=== PATIENT | female | born 1990 | race Caucasian/White ===

== ENCOUNTER 2021-03-20 15:28 | Emergency (ER) | payer OTHER, SELFPAY ==
[2021-03-20 15:34] VITALS: BP 127/83; PULSE 85; RESP 18; TEMP 36.3; O2SAT 100
--- NOTE | 2021-03-20 16:01 | ED.SKABFB ---
HPI - Skin/Abscess/Foreign Bdy General Chief complaint: Skin/Abscess/Foreign Body Stated complaint: Sore between Toe on right Foot also swollen Time Seen by Provider: 03/20/21 16:01 Source: patient and RN notes reviewed Mode of arrival: ambulatory Limitations: no limitations History of Present Illness HPI narrative: 30 year old female presents to [facility] care with complaints of blister type of lesion to the area between her 4th and 5th toe of her right foot for one week duration. Patient states that she has been applying Aquaphor lotion to wound area. Patient also has small abrasion to inner aspect of 5th toe near red inflamed tissue. Patient denies any drainage from area, denies any known trauma to area, states burning sensation to tissue. Patient denies any fevers, chills or sweats. rates her pain 3/10. MD complaint: lesion Onset (ago): week(s) (1) Tetanus up to date: yes Location: R foot Severity scale (1-10): 3 Quality: burning Treatments prior to arrival: other (aquaphor lotion) Related Data Home Medications Medication Instructions Recorded Confirmed multivitamin 1 cap PO DAILY 05/26/20 Allergies Allergy/AdvReac Type Severity Reaction Status Date / Time No Known Allergies Allergy Verified 03/20/21 15:48 Review of Systems Review of Systems: Narrative: CONSTITUTIONAL: Denies fever, chills, or sweats. EYES: Denies visual changes, redness, or discharge. ENT: Denies rhinorrhea, congestion, sore throat, or otalgia. CARDIOVASCULAR: Denies chest pain, palpitations, or edema. RESPIRATORY: Denies cough or dyspnea. GASTROINTESTINAL: Denies abdominal pain, nausea, vomiting, or diarrhea. GENITOURINARY: Denies dysuria or hematuria. SKIN: Denies rash or itching.positive for redness with blister type of lesion between 4th and 5th toe right foot burning sensation MUSCULOSKELETAL: Denies back pain, joint pain, or myalgia. NEUROLOGIC: Denies headache, numbness, or weakness. PSYCHIATRIC: Denies anxiety or depression. All systems reviewed & are unremarkable except as noted in HPI and below PMFSH Past Medical History Medical History (Updated 03/21/21 @ 00:00 by Background Daemon) HPV (human papilloma virus) infection Migraines Vaginal delivery 11/27/16 Pre-term Female 4lbs 18oz Surgical History Surgical History (Updated 03/24/21 @ 14:10 by Lisa Barrera NP) No history of previous surgery Family History Family History Mother Breast cancer Grandparent Cerebrovascular accident Social History Social History (Updated 03/24/21 @ 14:10 by Lisa Barrera NP) Smoking status: Former smoker Additional smoking assessment comments: quit 2013 Alcohol intake: never Substance use: never Living arrangements: with family Gender identity (if verbalized by the patient): Female Comments At time of signature, agree with nursing past medical, surgical, social and family history. There is no relevant family history pertinent to the presenting complaint Exam Narrative: Exam Narrative: GENERAL: Well-appearing, well-nourished, and in no acute distress. HEAD: Normocephalic, atraumatic. EYES: PERRLA and EOMI. ENT: Nares clear, no rhinorrhea or epistaxis. Mucous membranes moist. NECK: Supple.no lymphadenopathy CHEST: Clear to auscultation. No respiratory distress.SAO2 100% on room air HEART: Regular rate and rhythm. No murmur heard. Normal peripheral pulses. ABDOMEN: Soft, nontender, nondistended, normal active bowel sounds. EXTREMITIES: Normal range of motion. No edema. SKIN: Warm, dry, blister type of lesion with redness between right 4th and 5th toe with small abrasion to inner aspect of the 5th toe no drainage noted, stated burning sensation of wound NEURO: No focal deficits. Alert and oriented x3. Course Vital Signs Vital signs: Vital Signs Temperature 36.3 C L 03/20/21 15:34 Pulse Rate 85 03/20/21 15:34 Respiratory Rate 18 03/20/21 15:34 Bloo
== END 2021-03-20 16:26 | disposition home or self-care (01) ==
PROVIDERS: Emergency Provider Registered Nurse
DX: B35.3 Tinea pedis (principal); Z87.891 Personal history of nicotine dependence
CPT/HCPCS: 99213; G0463